=== PATIENT | female | born 1980 | race Caucasian/White ===

== ENCOUNTER 2021-07-25 07:50 | Emergency (ER) | payer BC ==
[~2021-07-25] VITALS: Ht 170.2 cm; Wt 99.8 kg
[2021-07-25 07:56] VITALS: BP 133/85
[2021-07-25 08:36] LABS: CALCIUM 7.9 mg/dL (8.5-10.1); CREATININE 0.9 mg/dL (0.6-1.3); POTASSIUM 4.1 mmol/L (3.5-5.1)
[2021-07-25] MEDS ORDERED: ZOFRAN ODT4 MG DISSOLVE (08:56)
== END 2021-07-25 09:11 | disposition home or self-care (01) ==
LOC: M.ERS 07:50
PROVIDERS: Emergency Medicine Emergency Medical Services
DX: U07.1 COVID-19 (principal); R11.2 Nausea with vomiting, unspecified

== ENCOUNTER 2021-07-27 17:47 | Emergency (ER) | payer BC ==
[~2021-07-27] VITALS: Ht 170.2 cm; Wt 100.6 kg
[~2021-07-27 17:47] MED LIST: ZOFRAN ODT4 MG DISSOLVE
[2021-07-27 18:43] LABS: HEMATOCRIT 41.6 % (37.0-47.0); HEMOGLOBIN 14.4 gm/dL (12.0-15.0); MCH 30.1 pg (26.0-34.0); MCHC 34.5 g/dL (28.0-37.0); MCV 87.1 fL (80.0-100.0); MPV 7.9 fl. (7.2-11.1); RBC 4.78 mil/uL (4.20-5.00); RDW-CV 12.1 % (10.5-14.5); WBC 4.9 thou/uL (4.0-11.0)
[2021-07-27 18:51] LABS: CALCIUM 8.8 mg/dL (8.5-10.1); CREATININE 0.8 mg/dL (0.6-1.3); POTASSIUM 3.4 mmol/L (3.5-5.1)
[2021-07-27] MEDS ORDERED: PHENERGAN 25 MG25 M1 PO (18:54)
[2021-07-27] MEDS ORDERED: TESSALON PERLE100 M1 PO (18:54)
[2021-07-27 19:14] VITALS: BP 146/76
== END 2021-07-27 19:14 | disposition home or self-care (01) ==
LOC: M.ERS 17:47
PROVIDERS: Emergency Medicine Emergency Medical Services
DX: U07.1 COVID-19 (principal); R11.10 Vomiting, unspecified